=== PATIENT | male | born 1965 | race Caucasian/White ===

== ENCOUNTER 2020-10-17 12:23 | Emergency (ER) | payer OTHER ==
[2020-10-17] MEDS ORDERED: TESSALON PERLE100 M1 PO (15:09)
[2020-10-17] MEDS ORDERED: ALLERGY RELIEF5 MG PO (15:09)
[2020-10-17] MEDS ORDERED: G TUSSIN AC LI118 ML PO (15:09)
[2020-10-17] MEDS ORDERED: ONDANSETRON ODT4 MG PO (15:09)
[2020-10-17] MEDS ORDERED: FLONASE ALLER15.8 ML (15:09)
== END 2020-10-17 15:55 | disposition home or self-care (01) ==
LOC: FER 12:23
DX: U07.1 COVID-19 (principal)
CPT/HCPCS: 99283